=== PATIENT | female | born 1955 | race Caucasian/White ===

== ENCOUNTER → 2019-11-27 | Outpatient (CLI) | payer MEDICARE ==
[2019-11-27 09:25] LABS: ALANINE AMINOTRANSFERASE 16 U/L (0-55); ALKALINE PHOSPHATASE 40 U/L (40-136); BILIRUBIN,TOTAL 0.4 MG/DL (0.1-1.0); BUN/CREATININE RATIO 15; CALCIUM 9.4 MG/DL (8.5-10.1); CARBON DIOXIDE 29 MMOL/L (21-32); CHLORIDE 106 MMOL/L (98-107); CREATININE SERUM 0.78 MG/DL (0.60-1.30); GFR ESTIMATED > 60; GLUCOSE 99 MG/DL (70-105); POTASSIUM 4.2 MMOL/L (3.6-5.0); SODIUM 144 MMOL/L (135-145); TOTAL PROTEIN 6.4 GM/DL (6.4-8.2)
[2019-11-27 09:26] LABS: ALBUMIN 4.3 GM/DL (3.2-4.5)
[2019-11-27 15:30] LABS: CHOLESTEROL 246 MG/DL (< 200); HDL CHOLESTEROL 94 MG/DL (40-60); TRIGLYCERIDES 54 MG/DL (<150); VLDL CHOLESTEROL 11 MG/DL (5-40)
== END ==
LOC: LAB FS 08:00
PROVIDERS: ATTEND Family Medicine
DX: Z00.00 Encounter for general adult medical examination without abnormal findings (principal)
CPT/HCPCS: 36415; 80053; 80061

== ENCOUNTER → 2020-11-27 | Outpatient (CLI) | payer MEDICARE ==
[2020-11-27 12:31] LABS: BUN/CREATININE RATIO 16; CARBON DIOXIDE 30 MMOL/L (21-32); CHLORIDE 105 MMOL/L (98-107); CREATININE SERUM 0.74 MG/DL (0.60-1.30); GFR ESTIMATED > 60; POTASSIUM 3.9 MMOL/L (3.6-5.0); SODIUM 142 MMOL/L (135-145)
[2020-11-27 12:32] LABS: ALANINE AMINOTRANSFERASE 16 U/L (0-55); ALBUMIN 4.3 GM/DL (3.2-4.5); ALKALINE PHOSPHATASE 46 U/L (40-136); BILIRUBIN,TOTAL 0.5 MG/DL (0.1-1.0); CALCIUM 9.8 MG/DL (8.5-10.1); GLUCOSE 90 MG/DL (70-105); TOTAL PROTEIN 6.5 GM/DL (6.4-8.2)
[2020-11-27 15:12] LABS: CHOLESTEROL 238 MG/DL (< 200); HDL CHOLESTEROL 85 MG/DL (40-60); TRIGLYCERIDES 75 MG/DL (<150); VLDL CHOLESTEROL 15 MG/DL (5-40)
== END ==
LOC: LAB FS 08:25
PROVIDERS: ATTEND Family Medicine
DX: I10 Essential (primary) hypertension (principal); L65.9 Nonscarring hair loss, unspecified
CPT/HCPCS: 36415; 80053; 80061; 84443

== ENCOUNTER 2022-05-17 09:54 | Inpatient (IN) | payer MEDICARE ==
[~2022-05-17] VITALS: Ht 162 cm; Wt 44.0 kg
[2022-05-17] MEDS ORDERED: FAMOTIDINE 20 MG (PEPCID) TABLET PO STA (10:13)
--- NOTE | 2022-05-17 10:13 | ED Cardiac General ---
History of Present Illness General Stated Complaint: CHEST PAIN Source: patient Exam Limitations: no limitations History of Present Illness Date Seen by Provider: May 17, 2022 Time Seen by Provider: 10:00 Initial Comments 66-year-old female with past medical history of Parkinson's and anxiety coming in due to chest pain. Started a couple hours ago, constant, center of her chest, pressure-like discomfort. Pain has been nonradiating, no associated shortness of breath, cough, fever, abdominal pain, nausea, vomiting, diarrhea, weakness, numbness, or any other concerns. She tried taking half of her propranolol since that is what she takes when she gets anxious. The only other medicine she is on is a trial drug for her Parkinson's. She does not take any blood thinners. Denies any coronary history, no prior blood clots, no hemoptysis, leg swelling or pain, recent surgery, recent long travel, does not take any hormones. Allergies and Home Medications Allergies Coded Allergies: penicillin V (Verified Allergy, Unknown, 05/17/22) Patient Home Medication List Home Medication List Reviewed: Yes Review of Systems Review of Systems Constitutional: No fever EENTM: No Blurred Vision Respiratory: Denies Cough, Denies Shortness of Air, Denies SOA at Rest Cardiovascular: Chest Pain Gastrointestinal: Denies Abdominal Pain Genitourinary: No Symptoms Reported Musculoskeletal: no symptoms reported Skin: no symptoms reported Psychiatric/Neurological: Anxiety Endocrine: No Symptoms Reported Hematologic/Lymphatic: No Symptoms Reported All Other Systems Reviewed Negative Unless Noted: Yes Past Fffkkgu-Zdnrui-Jnsfcy Hx Patient Social History Tobacco Use?: No Past Medical History Surgeries: No Physical Exam Vital Signs Vital Signs - First Documented 05/17/22 10:27 Pulse 57 B/P (MAP) 146/86 (106) Pulse Ox 98 Capillary Refill : Height, Weight, BMI Height: '" Weight: lbs. oz. kg; BMI Method: General Appearance: No Apparent Distress, WD/WN HEENT: PERRL/EOMI, Normal ENT Inspection, Pharynx Normal Neck: Full Range of Motion, Normal Inspection, Non Tender, Supple Respiratory: Chest Non Tender, Lungs Clear, Normal Breath Sounds, No Accessory Muscle Use, No Respiratory Distress Cardiovascular: Regular Rate, Rhythm, No Edema, Normal Peripheral Pulses Gastrointestinal: Normal Bowel Sounds, Non Tender, Soft Extremity: Normal Capillary Refill, Normal Inspection, Normal Range of Motion, Non Tender, No Calf Tenderness, No Pedal Edema Neurologic/Psychiatric: Alert, No Motor/Sensory Deficits, Normal Mood/Affect Skin: Normal Color, Warm/Dry Lymphatic: No Adenopathy Progress/Results/Core Measures Results/Orders Lab Results Laboratory Tests Test 05/17/22 10:05 05/17/22 11:00 Range/Units White Blood Count 7.2 4.3-11.0 10^3/uL Red Blood Count 4.43 3.80-5.11 10^6/uL Hemoglobin 13.7 11.5-16.0 g/dL Hematocrit 41 35-52 % Mean Corpuscular Volume 92 80-99 fL Mean Corpuscular Hemoglobin 31 25-34 pg Mean Corpuscular Hemoglobin Concent 34 32-36 g/dL Red Cell Distribution Width 12.6 10.0-14.5 % Platelet Count 272 130-400 10^3/uL Mean Platelet Volume 9.5 9.0-12.2 fL Immature Granulocyte % (Auto) 0 % Neutrophils (%) (Auto) 68 42-75 % Lymphocytes (%) (Auto) 21 12-44 % Monocytes (%) (Auto) 9 0-12 % Eosinophils (%) (Auto) 1 0-10 % Basophils (%) (Auto) 1 0-10 % Neutrophils # (Auto) 4.9 1.8-7.8 10^3/uL Lymphocytes # (Auto) 1.5 1.0-4.0 10^3/uL Monocytes # (Auto) 0.6 0.0-1.0 10^3/uL Eosinophils # (Auto) 0.1 0.0-0.3 10^3/uL Basophils # (Auto) 0.1 0.0-0.1 10^3/uL Immature Granulocyte # (Auto) 0.0 0.0-0.1 10^3/uL Prothrombin Time 13.1 12.2-14.7 SEC INR Comment 1.0 0.8-1.4 Activated Partial Thromboplast Time 25 24-35 SEC Sodium Level 142 135-145 MMOL/L Potassium Level 4.5 3.6-5.0 MMOL/L Chloride Level 104 98-107 MMOL/L Carbon Dioxide Level 27 21-32 MMOL/L Anion Gap 11 5-14 MMOL/L Blood Urea Nitrogen 12 7-18 MG/DL Creatinine 0.79 0.60-1.30 MG/DL Estimat Glomerular Filtration Rate 81 BUN/Creatinine Ratio 15 Glucose Level 125 H 70-105 MG/DL Calcium Level 9.5 8.5-10.1 MG/DL Corrected Calcium 9.1 8.5-10.1 MG/DL Magnesium Level 2.0 1.6-2.4 MG/DL Total Bilirubin 0.5 0.1-1.0 MG/DL Aspartate Amino Transf (AST/SGOT) 35 H 5-34 U/L Alanine Aminotransferase (ALT/SGPT) 19 0-55 U/L Alkaline Phosphatase 54 40-136 U/L Troponin I < 0.30 0.70 *H <0.30 NG/ML Pro-B-Type Natriuretic Peptide 166.2 H <125.0 PG/ML Total Protein 6.7 6.4-8.2 GM/DL Albumin 4.5 3.2-4.5 GM/DL Lipase 19 8-78 U/L My Orders Orders - ERIBERTO CANTOR MD Cbc With Automated Diff (05/17/22 10:13) Magnesium (05/17/22 10:13) Chest 1 View Ap/Pa Only (05/17/22 10:13) Ekg Tracing (05/17/22 10:13) Comprehensive Metabolic Panel (05/17/22 10:13) Protime With Inr (05/17/22 10:13) Partial Thromboplastin Time (05/17/22 10:13) O2 (05/17/22 10:13) Monitor-Rhythm Ecg Trace Only (05/17/22 10:13) Aspirin Chewable Tablet (Baby Aspirin Ch (05/17/22 10:15) Ed Iv/Invasive Line Start (05/17/22 10:13) Lipase (05/17/22 10:13) Troponin I Fs (05/17/22 10:13) Probnp Fs (05/17/22 10:13) Lidocaine 2% Viscous 15 Ml (Xylocaine Vi (05/17/22 10:15) Famotidine Tablet (Pepcid Tablet) (05/17/22 10:13) Antacid Suspension (Mylanta Suspension (05/17/22 10:15) Troponin I Fs (05/17/22 11:02) Enoxaparin Injection (Lovenox Injection) (05/17/22 11:45) Nitroglycerin Ointment (Nitrobid Ointme (05/17/22 11:45) Nitroglycerin 0.4 Mg Btl 25's (Nitrostat (05/17/22 11:45) Ekg Tracing (05/17/22 11:39) Ed Admission (Communication) (05/17/22 11:40) Medications Given in ED Current Medications Medications Dose Ordered Sig/Roddy Route Start Time Stop Time Status Last Admin Dose Admin Al Hydrox/Mg Hydrox/Simethicone 30 ml ONCE ONCE PO 05/17/22 10:15 05/17/22 10:16 DC 05/17/22 10:20 30 ML Aspirin 324 mg ONCE ONCE PO 05/17/22 10:15 05/17/22 10:16 DC 05/17/22 10:18 324 MG Enoxaparin Sodium 50 mg ONCE ONCE SC 05/17/22 11:45 05/17/22 11:46 DC 05/17/22 11:45 50 MG Lidocaine HCl 15 ml ONCE ONCE PO 05/17/22 10:15 05/17/22 10:16 DC 05/17/22 10:20 15 ML Nitroglycerin 1 TAB Q 5 MIN X 3 NEEDED PRN SL 05/17/22 11:45 05/17/22 11:47 0.4 MG Vital Signs/I&O 05/17/22 10:27 Pulse 57 B/P (MAP) 146/86 (106) Pulse Ox 98 Progress Progress Note : Progress Note 66-year-old female with above history coming in due to chest pain. ABCs were intact and vitals are stable on presentation although she was mildly bradycardic ranging from the high 50s to 60s. She was hypertensive. She was given aspirin on arrival. EKG appears nonischemic. Initial troponin undetectable with repeat 0.7. She was then given 1 unit/kg of Lovenox as well as nitro paste started. I contacted Dr. Joyner for consultation and the patient will be admitted to the intensive care unit under Dr. Solis as an inpatient. Initial ECG Impression Date: May 17, 2022 Initial ECG Impression Time: 10:13 Initial ECG Rate: 54 Initial ECG Rhythm: S.Fito Comment Narrow QRS, normal axis, no significant ST elevation or T wave abnormalities, subtle ST depression in inferior and lateral leads, repeat EKG is stable and unchanged Diagnostic Imaging Diagonstic Imaging: Xray Plain Films/CT/US/NM/MRI: chest Comments [facility] [place], [place] NAME: COCO MOY [facility] REC#: [id number] PT STATUS: REG ER : 1955 PHYSICIAN: ERIBERTO CANTOR MD ADMIT DATE: 05/17/22/ER FS Draft Date of Exam:05/17/22 CHEST 1 VIEW AP/PA ONLY CLINICAL INDICATIONS: Patient with chest pain. EXAM: Portable chest x-ray upright view. COMPARISON: None. FINDINGS: Lungs/pleura: Lungs are clear. There is no pneumothorax. There is no pleural effusion. Mediastinum: Unremarkable. Pulmonary vasculature: Unremarkable. Heart: Unremarkable. Bones/extrathoracic soft tissue: Unremarkable. IMPRESSION: There is no radiographic evidence of acute cardiopulmonary process. Dictated on workstation # [id number] Dict: 05/17/22 1029 Trans: 05/17/22 1031 CV [id number] Interpreted by: ARCHIE KARIMI MD Electronically signed by: Departure Impression Primary Impression: NSTEMI (non-ST elevated myocardial infarction) Disposition: 30 STILL A PATIENT Condition: Stable Admissions Decision to Admit Reason: Admit from ER (General) Decision to Admit/Date: May 17, 2022 Time/Decision to Admit Time: 11:25 Transfer Transfer Facility: [facility] Method of Transfer: EMS Departure-Patient Inst. Referrals: DOLORES CALDWELL MD (PCP/Family) Primary Care Physician ERIBERTO CANTOR MD May 17, 2022 10:13
[2022-05-17] MEDS ORDERED: ANTACID SUSP 30 ML UDC (MYLANTA) PO ONE (10:15)
[2022-05-17] MEDS ORDERED: ASPIRIN 81 MG CHEW (CHILDREN'S ASA) PO ONE (10:15)
[2022-05-17] MEDS ORDERED: LIDOCAINE 2% VISCOUS 15 ML UDC PO ONE (10:15)
[2022-05-17 10:17] LABS: BASOPHILS # (AUTO) 0.1 10^3/uL (0.0-0.1); BASOPHILS % (AUTO) 1 % (0-10); EOSINOPHILS # (AUTO) 0.1 10^3/uL (0.0-0.3); EOSINOPHILS % (AUTO) 1 % (0-10); HEMATOCRIT 41 % (35-52); HEMOGLOBIN 13.7 g/dL (11.5-16.0); LYMPHOCYTES # (AUTO) 1.5 10^3/uL (1.0-4.0); LYMPHOCYTES % (AUTO) 21 % (12-44); MEAN CORPUSCULAR HEMOGLOBIN 31 pg (25-34); MEAN CORPUSCULAR HGB CONC 34 g/dL (32-36); MEAN CORPUSCULAR VOLUME 92 fL (80-99); MEAN PLATELET VOLUME 9.5 fL (9.0-12.2); MONOCYTES # (AUTO) 0.6 10^3/uL (0.0-1.0); MONOCYTES % (AUTO) 9 % (0-12); NEUTROPHILS # (AUTO) 4.9 10^3/uL (1.8-7.8); NEUTROPHILS % (AUTO) 68 % (42-75); PLATELET COUNT 272 10^3/uL (130-400); WHITE BLOOD COUNT 7.2 10^3/uL (4.3-11.0)
[2022-05-17 10:23] LABS: PROTHROMBIN TIME PATIENT 13.1 SEC (12.2-14.7)
[2022-05-17 10:29] LABS: ALBUMIN 4.5 GM/DL (3.2-4.5); BILIRUBIN,TOTAL 0.5 MG/DL (0.1-1.0); CALCIUM 9.5 MG/DL (8.5-10.1); CREATININE SERUM 0.79 MG/DL (0.60-1.30); POTASSIUM 4.5 MMOL/L (3.6-5.0); TOTAL PROTEIN 6.7 GM/DL (6.4-8.2)
--- NOTE | 2022-05-17 10:31 | Diagnostic Imaging Report ---
CLINICAL INDICATIONS: Patient with chest pain. EXAM: Portable chest x-ray upright view. COMPARISON: None. FINDINGS: Lungs/pleura: Lungs are clear. There is no pneumothorax. There is no pleural effusion. Mediastinum: Unremarkable. Pulmonary vasculature: Unremarkable. Heart: Unremarkable. Bones/extrathoracic soft tissue: Unremarkable. IMPRESSION: There is no radiographic evidence of acute cardiopulmonary process. Dictated by: Dictated on workstation # [id number]
[2022-05-17] MEDS ORDERED: NITROGLYCERIN 0.4 MG SL TABS BTL 25'S SL PRN ×2 (11:45→14:45)
[2022-05-17] MEDS ORDERED: NITROGLYCERIN 2% OINT 1 GM UNIT DOSE PACKET TOP ONE (11:45)
[2022-05-17] MEDS ORDERED: ENOXAPARIN 60 MG/0.6 ML (LOVENOX) SYR SC ONE (11:45)
[2022-05-17] MEDS ORDERED: fentaNYL INJ 100 MCG/2 ML AMP ONE (14:22)
[2022-05-17] MEDS ORDERED: VERAPAMIL 5 MG/2 ML (CALAN) VIAL IV ONE (14:22)
[2022-05-17] MEDS ORDERED: MIDAZOLAM 5 MG/5 ML (VERSED) VIAL ONE (14:23)
[2022-05-17] MEDS ORDERED: HEParin 1000 UNIT/ML (10ML VIAL) FOR BOLUS ONE (14:23)
[2022-05-17] MEDS ORDERED: NITRO DRIP 25000 MCG/D5W 0 ML IV ONE (14:23)
[2022-05-17] MEDS ORDERED: NS IV 1000 ML 1,000 ML ONE (14:23)
[2022-05-17] MEDS ORDERED: HEParin (CATH LAB) 1,000 ML IV ONE (14:23)
[2022-05-17] MEDS ORDERED: LIDOCAINE 1% INJ 20 ML VIAL ONE (14:23)
--- NOTE | 2022-05-17 14:32 | History & Physical-Hospitalist ---
History of Present Illness HPI/Chief Complaint Pt is a 66yoCF witha PMH of Parkinson's Disease and Anxiety who presented to the ER due to ches tpain. 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 She thought it was due to anxiety which is not atypical for her to get while she plays piano. She waiting to see if it would dissipate but it continued so she decided to seek evaluation in the ER. EKG showed sinus bradycardia with no ischemic changes per the ER report. She had a negative initial troponin so they attempted to rule her out in the ER. Repeat troponin increased to 0.7 and she was admitted for further management. She denies any KHOURY, palpitations, nausea, vomiting, diaphoresis. Source: patient, RN notes reviewed Date Seen 05/17/22 Time Seen by a Provider: 14:25 Attending Physician Dolores Caldwell MD PCP Admitting Physician: Attending Physician: Referring Physician Date of Admission Home Medications & Allergies Home Medications Reviewed patient Home Medication Reconciliation performed by pharmacy medication reconciliations boiler testing technician and/or nursing. Patients Allergies have been reviewed. Allergies Allergies Coded Allergies penicillin V (Verified Allergy, Unknown, 05/17/22) Past Hoifoya-Swuava-Vhsxsk Hx Patient Social History Marrital Status: Tobacco Use?: No Use of E-Cig and/or Vaping dev: No Substance use?: No Alcohol Use?: Yes Alcohol Frequency: Once in a while Current Status status: No Primary Language: Indonesian Preferred Spoken Language: Indonesian Past Medical History Parkinson's Disease Family Medical History Reviewed Nursing Family Hx Heart Disease (dad [place] at 86yo) Review of Systems Constitutional: No chills, No fever EENTM: no symptoms reported Respiratory: No cough, No dyspnea on exertion, No short of breath Cardiovascular: see HPI, chest pain Gastrointestinal: no symptoms reported Genitourinary: no symptoms reported Musculoskeletal: no symptoms reported Skin: no symptoms reported Psychiatric/Neurological: Anxiety Physical Exam Physical Exam Vital Signs Vital Signs - First Documented 05/17/22 05/17/22 10:27 12:37 Temp 36.6 Pulse 57 Resp 14 B/P (MAP) 146/86 (106) Pulse Ox 98 O2 Delivery Room Air Capillary Refill : Height, Weight, BMI Height: '" Weight: lbs. oz. kg; 16.00 BMI Method: General Appearance: No Apparent Distress, WD/WN, Anxious, Thin HEENT: PERRL/EOMI, Moist Mucous Membranes; No Scleral Icterus (L), No Scleral Icterus (R) Neck: Normal Inspection, Supple Respiratory: Lungs Clear, No Accessory Muscle Use, No Respiratory Distress Cardiovascular: Regular Rate, Rhythm, No JVD, No Murmur Gastrointestinal: Normal Bowel Sounds, Non Tender, Soft Extremity: Normal Capillary Refill, No Calf Tenderness, No Pedal Edema Neurologic/Psychiatric: Alert, Oriented x3, Normal Mood/Affect Skin: Normal Color, Warm/Dry Results Results/Procedures Labs Laboratory Tests 05/17/22 10:05 Patient resulted labs reviewed. Imaging: Reviewed Imaging Report Imaging [facility] [place] [place] NAME: COCO MOY [facility] REC#: [id number] PT STATUS: REG ER : 1955 PHYSICIAN: ERIBERTO CANTOR MD ADMIT DATE: 05/17/22/ER FS Draft Date of Exam:05/17/22 CHEST 1 VIEW AP/PA ONLY CLINICAL INDICATIONS: Patient with chest pain. EXAM: Portable chest x-ray upright view. COMPARISON: None. FINDINGS: Lungs/pleura: Lungs are clear. There is no pneumothorax. There is no pleural effusion. Mediastinum: Unremarkable. Pulmonary vasculature: Unremarkable. Heart: Unremarkable. Bones/extrathoracic soft tissue: Unremarkable. IMPRESSION: There is no radiographic evidence of acute cardiopulmonary process. Dictated on workstation # [id number] Dict: 05/17/22 1029 Trans: 05/17/22 1031 [facility] [id number] Interpreted by: ARCHIE KARIMI MD Electronically signed by: Assessment/Plan Admission Diagnosis NSTEMI Admission Status: Inpatient Order (span 2 midnights) Reason for Inpatient Admission: see below Assessment and Plan NSTEMI Troponin trended up from <0.3 to 0.7 Received ASA, Lovenox, and nitro in ER Nitro resolved pain Discussed with Dr Joyner- planning for cardiac cath today Parkinson's Disease Currently in trial She states she will find out if they want her to continue on the trial meds DVT ppx: Already received Lovenox Diagnosis/Problems Diagnosis/Problems (1) Parkinson disease (2) NSTEMI (non-ST elevated myocardial infarction) Status: Acute Copy Copies To 1: DOLORES CALDWELL MD, KATELYN M MD May 17, 2022 14:32
[2022-05-17] MEDS ORDERED: PATIENT MAY USE OWN MEDS, ALL PO SCH ×2 (14:45→15:30)
[2022-05-17] MEDS ORDERED: ONDANSETRON 4 MG/2 ML (SDV) Z0FRAN IVP PRN (14:45)
[2022-05-17] MEDS ORDERED: morphine INJ 4 MG/ML 1 ML (VIAL/SYRINGE) IV PRN (14:45)
--- NOTE | 2022-05-17 14:50 | Consultation-Cardiology ---
HPI-Cardiology Cardiology Consultation Date of Consultation 05/17/22 Date of Admission Time Seen by Provider: 14:47 Indication: Chest pain HPI 66-year-old lady with history of hypertension. Parkinson disease. Was in her usual state of health until this afternoon when she started to have chest pain described as dull in nature in the retrosternal area. Associated with shortness of breath. Patient came into the emergency room, given sublingual nitroglycerin with appropriate relief. First troponin set was normal second set showed elevation. EKG did not show any acute changes. Home Medications & Allergies Allergies: Coded Allergies: penicillin V (Verified Allergy, Unknown, 05/17/22) Home Medication List Reviewed: Yes BFA-Mhcidh-Bekmrs Hx Patient Social History Marital Status: Alcohol Use?: Yes Past Medical History Discussed below Family Medical History Significant Family History: Heart Disease (dad [place] at 86yo) Family Medical Hx Noncontributory Review of Systems-General Review of Systems Constitutional: see HPI; No chills, No fever; weakness EENTM: see HPI, no symptoms reported Respiratory: see HPI; No cough, No dyspnea on exertion, No hemoptysis, No orthopnea, No phlegm; short of breath; No stridor, No wheezing, No other Cardiovascular: see HPI, chest pain; No edema, No Hx of Intervention, No palpitations, No syncope, No vascular heart diseas, No other Gastrointestinal: no symptoms reported, see HPI Genitourinary: no symptoms reported, see HPI Musculoskeletal: no symptoms reported, see HPI Skin: no symptoms reported, see HPI Psychiatric/Neurological: Anxiety All Other Systems Reviewed Negative Unless Noted: Yes Reviewed Test Results Reviewed Test Results Lab Laboratory Tests Test 05/17/22 10:05 05/17/22 11:00 Range/Units White Blood Count 7.2 4.3-11.0 10^3/uL Red Blood Count 4.43 3.80-5.11 10^6/uL Hemoglobin 13.7 11.5-16.0 g/dL Hematocrit 41 35-52 % Mean Corpuscular Volume 92 80-99 fL Mean Corpuscular Hemoglobin 31 25-34 pg Mean Corpuscular Hemoglobin Concent 34 32-36 g/dL Red Cell Distribution Width 12.6 10.0-14.5 % Platelet Count 272 130-400 10^3/uL Mean Platelet Volume 9.5 9.0-12.2 fL Immature Granulocyte % (Auto) 0 % Neutrophils (%) (Auto) 68 42-75 % Lymphocytes (%) (Auto) 21 12-44 % Monocytes (%) (Auto) 9 0-12 % Eosinophils (%) (Auto) 1 0-10 % Basophils (%) (Auto) 1 0-10 % Neutrophils # (Auto) 4.9 1.8-7.8 10^3/uL Lymphocytes # (Auto) 1.5 1.0-4.0 10^3/uL Monocytes # (Auto) 0.6 0.0-1.0 10^3/uL Eosinophils # (Auto) 0.1 0.0-0.3 10^3/uL Basophils # (Auto) 0.1 0.0-0.1 10^3/uL Immature Granulocyte # (Auto) 0.0 0.0-0.1 10^3/uL Prothrombin Time 13.1 12.2-14.7 SEC INR Comment 1.0 0.8-1.4 Activated Partial Thromboplast Time 25 24-35 SEC Sodium Level 142 135-145 MMOL/L Potassium Level 4.5 3.6-5.0 MMOL/L Chloride Level 104 98-107 MMOL/L Carbon Dioxide Level 27 21-32 MMOL/L Anion Gap 11 5-14 MMOL/L Blood Urea Nitrogen 12 7-18 MG/DL Creatinine 0.79 0.60-1.30 MG/DL Estimat Glomerular Filtration Rate 81 BUN/Creatinine Ratio 15 Glucose Level 125 H 70-105 MG/DL Calcium Level 9.5 8.5-10.1 MG/DL Corrected Calcium 9.1 8.5-10.1 MG/DL Magnesium Level 2.0 1.6-2.4 MG/DL Total Bilirubin 0.5 0.1-1.0 MG/DL Aspartate Amino Transf (AST/SGOT) 35 H 5-34 U/L Alanine Aminotransferase (ALT/SGPT) 19 0-55 U/L Alkaline Phosphatase 54 40-136 U/L Troponin I < 0.30 0.70 *H <0.30 NG/ML Pro-B-Type Natriuretic Peptide 166.2 H <125.0 PG/ML Total Protein 6.7 6.4-8.2 GM/DL Albumin 4.5 3.2-4.5 GM/DL Lipase 19 8-78 U/L Physical Exam Physical Exam Vital Signs Vital Signs - First Documented 05/17/22 05/17/22 10:27 12:37 Temp 36.6 Pulse 57 Resp 14 B/P (MAP) 146/86 (106) Pulse Ox 98 O2 Delivery Room Air Capillary Refill : Height, Weight, BMI Height: '" Weight: lbs. oz. kg; 16.00 BMI Method: General Appearance: No Apparent Distress, WD/WN, Anxious, Thin HEENT: PERRL/EOMI, Moist Mucous Membranes; No Scleral Icterus (L), No Scleral Icterus (R) Neck: Normal Inspection, Supple Respiratory: Lungs Clear, No Accessory Muscle Use, No Respiratory Distress Cardiovascular: Regular Rate, Rhythm, No JVD, No Murmur Gastrointestinal: Normal Bowel Sounds, Non Tender, Soft Extremity: Normal Capillary Refill, No Calf Tenderness, No Pedal Edema Neurologic/Psychiatric: Alert, Oriented x3, Normal Mood/Affect Skin: Normal Color, Warm/Dry Lymphatic: No Adenopathy A/P-Cardiology Admission Diagnosis Chest pain Non-ST elevation myocardial infarction Coronary artery disease Parkinson's disease Assessment/Plan Chest pain, unstable angina EKG showed sinus rhythm with nonspecific T wave abnormality, no acute ischemic changes, troponin level is trending up. Patient initially reported full resolution of her chest pain, currently reporting mild chest discomfort I am planning to proceed with cardiac catheterization possible PTCA today. Hypertension, blood pressure is better controlled at this time. Continue to monitor Parkinson disease, patient has been enrolled in a study with investigational medication. GENOVEVA LUTZ MD May 17, 2022 14:50
--- NOTE | 2022-05-17 14:51 | Conscious Sedation/ASA ---
Conscious Sedation Pre-Proced Time 14:51 ASA Score 3 For ASA 3 and 4: Consider anesthesia and medical clearance. Also, for patients with a history of failed moderate sedation consider anesthesia. Airway Lungs Heart ASA score ASA 1: a normal healthy patient ASA 2: a patient with a mild systemic disease (mid diabetes, controlled hypertension, obesity x ASA 3: a patient with a severe systemic disease that limits activity (angina, COPD, prior Myocardial infarction) ASA 4: a patient with an incapacitating disease that is a constant threat to life (CHF, renal failure) ASA 5: a moribund patient not expected to survive 24 hrs. (ruptured aneurysm) ASA 6: a declared brain- patient whose organs are being harvested. For emergent operations, add the letter E after the classification Mallampati Classification Grade 3 Sedation Plan Analgesia, Amnesia, Plan communicated to team members, Discussed options with patient/fam, Discussed risks with patient/fam The patient is an appropriate candidate to undergo the planned procedure, sedation, and anesthesia. The patient immediately re-assessed prior to indication. GENOVEVA LUTZ MD May 17, 2022 14:51
--- NOTE | 2022-05-17 14:58 | Tele-ICU Consult ---
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 oz. kg; 16.00 BMI Method: Labs Laboratory Tests 05/17/22 10:05 Results Results/Procedures Labs Laboratory Tests 05/17/22 10:05 Patient resulted labs reviewed. Imaging: Reviewed Imaging Report Results Labs Labs Laboratory Tests 05/17/22 10:05: White Blood Count 7.2, Red Blood Count 4.43, Hemoglobin 13.7, Hematocrit 41, Mean Corpuscular Volume 92, Mean Corpuscular Hemoglobin 31, Mean Corpuscular Hemoglobin Concent 34, Red Cell Distribution Width 12.6, Platelet Count 272, Mean Platelet Volume 9.5, Immature Granulocyte % (Auto) 0, Neutrophils (%) (Auto) 68, Lymphocytes (%) (Auto) 21, Monocytes (%) (Auto) 9, Eosinophils (%) (Auto) 1, Basophils (%) (Auto) 1, Neutrophils # (Auto) 4.9, Lymphocytes # (Auto) 1.5, Monocytes # (Auto) 0.6, Eosinophils # (Auto) 0.1, Basophils # (Auto) 0.1, Immature Granulocyte # (Auto) 0.0, Prothrombin Time 13.1, INR Comment 1.0, Activated Partial Thromboplast Time 25, Sodium Level 142, Potassium Level 4.5, Chloride Level 104, Carbon Dioxide Level 27, Anion Gap 11, Blood Urea Nitrogen 12, Creatinine 0.79, Estimat Glomerular Filtration Rate 81, BUN/Creatinine Ratio 15, Glucose Level 125H, Calcium Level 9.5, Corrected Calcium 9.1, Magnesium Level 2.0, Total Bilirubin 0.5, Aspartate Amino Transf (AST/SGOT) 35H, Alanine Aminotransferase (ALT/SGPT) 19, Alkaline Phosphatase 54, Troponin I < 0.30, Pro-B-Type Natriuretic Peptide 166.2H, Total Protein 6.7, Albumin 4.5, Lipase 19 05/17/22 11:00: Troponin I 0.70*H ERIC MARTÍNEZ MD May 17, 2022 14:58
--- NOTE | 2022-05-17 15:22 | Cardiac Cath Report ---
Cardiac Cath Report Physician (s)/Telephone Lineworker (s) Physician GENOVEVA LUTZ MD Pre-Procedure Diagnosis Pre-Procedure Diagnosis: Chest pain Post-Procedure Note Procedure Start Date: May 17, 2022 Name of Procedure: Left heart catheterization Findings/Procedure Note PROCEDURE NOTE: 66-year-old lady with history of Parkinson disease, admitted with acute chest pain, had mild elevation in troponin, we decided to proceed with cardiac catheterization possible PTCA. After explaining the procedure to the patient, all pros and cons were explained, all questions were answered. The patient signed the consent and then she was placed on the cardiac catheterization laboratory. Groin was prepped SL fashion local anesthesia was used. Sheath placed in the right femoral artery. Ramirez right and left catheter were used to access the coronary system. Ramirez right catheter was prolapsed to the left ventricular cavity. Left ventriculogram was not done, pressure was measured, pullback LV to aorta was done. At the end of the procedure the sheath was removed. Closure device was deployed FINDINGS: Hemodynamics LV 96/18, end-diastolic pressure of 18 Aorta 101/59 mean of 80 ANATOMY: Left Main is free of obstructive disease Left Anterior Descending is moderate in size with 20 to 30% stenosis proximally, nonobstructive disease slightly tortuous artery with no obstructive disease Left Circumflex is moderate in size with mild disease nonobstructive disease Right Coronary Artery is small artery with no obstructive disease LV Gram was not done, pressure was measured CONCLUSION: 1. 20 to 30% stenosis in the proximal LAD, otherwise mild coronary artery disease nonobstructive disease 2. Moderately elevated left ventricular end-diastolic pressure DISCUSSION AND RECOMMENDATION: We will continue monitoring, continue on aspirin, I will evaluate 2D echocardiogram Anesthesia Type: Conscious Sedation Estimated blood loss (mL): 15 ml Contrast Amount: 27 ml Total Radiation Dose: 70 mGy Post-Procedure Diagnosis Post-operative diagnosis: Chest pain Coronary artery disease Type II myocardial infarction Parkinson disease GENOVEVA LUTZ MD May 17, 2022 15:22
[2022-05-17] MEDS: NS IV 1000 ML 1,000 ML IV SCH (15:30)
[2022-05-17] MEDS ORDERED: NS IV 1000 ML 1,000 ML IV STA (16:38)
[2022-05-17] MEDS ORDERED: DOBUTamine DRIP 250 ML IV SCH (18:45)
[2022-05-17] MEDS ORDERED: DOBUTamine DRIP 250 ML IV ONE (18:54)
[2022-05-17 18:59] VITALS: BP 73/36
[2022-05-18 04:28] LABS: HEMATOCRIT 37 % (35-52); HEMOGLOBIN 12.5 g/dL (11.5-16.0); MEAN CORPUSCULAR HEMOGLOBIN 31 pg (25-34); MEAN CORPUSCULAR HGB CONC 34 g/dL (32-36); MEAN CORPUSCULAR VOLUME 93 fL (80-99); MEAN PLATELET VOLUME 10.1 fL (9.0-12.2); PLATELET COUNT 179 10^3/uL (130-400); WHITE BLOOD COUNT 6.8 10^3/uL (4.3-11.0)
[2022-05-18 04:42] LABS: POTASSIUM 4.4 MMOL/L (3.6-5.0)
[2022-05-18 04:43] LABS: CALCIUM 8.2 MG/DL (8.5-10.1)
[2022-05-18 04:48] LABS: CREATININE SERUM 0.68 MG/DL (0.60-1.30)
[2022-05-18] MEDS ORDERED: ASPIRIN E.C. 81 MG (ECOTRIN) TAB PO SCH (09:00)
[2022-05-18] MEDS ORDERED: LOSARTAN 25 MG (COZAAR) TAB PO SCH (09:00)
--- NOTE | 2022-05-18 10:46 | Cardiology Progress Note ---
Subjective Date Seen by Provider: May 18, 2022 Time Seen by Provider: 08:00 Subjective/Events-last exam Patient was seen at bedside, feeling better. No new complaint Denied any chest pain or shortness of breath. No palpitation Review of Systems General: No Chills, No Night Sweats, No Fatigue, No Malaise, No Appetite, No Other HEENT: No Head Aches, No Visual Changes, No Eye Pain, No Ear Pain, No Dysphasia, No Sinus Congestion, No Post Nasal Drip, No Sore Throat, No Other Pulmonary: No Dyspnea, No Cough, No Pleuritic Chest Pain, No Other Cardiovascular: No: Chest Pain, Palpitations, Orthopnea, Paroxysmal Noc. Dyspnea, Edema, Lt Headedness, Other Objective-Cardiology Exam Last Set of Vital Signs Vital Signs 05/18/22 05/18/22 07:00 10:00 Temp 36.5 Pulse 68 Resp 10 B/P (MAP) 116/90 Pulse Ox 98 O2 Delivery Room Air I&O Intake and Output 05/18/22 00:00 Daily Weight Change No General: Alert, Oriented X3, Cooperative HEENT: Atraumatic, PERRLA Neck: Supple, No JVD, No Thyromegaly Lungs: Clear to Auscultation, Normal Air Movement Heart: Regular Rate, Normal S1, Normal S2, No Murmurs Abdomen: Normal Bowel Sounds, Soft, No Tenderness, No Hepatosplenomegaly, No Masses Extremities: No Clubbing, No Cyanosis, No Edema, Normal Pulses, No Tenderness/Swelling Skin: No Rashes, No Breakdown, No Significant Lesion Neuro: Normal Gait, Normal Speech, Strength at 5/5 X4 Ext, Normal Tone, Sensation Intact Psych/Mental Status: Mental Status NL, Mood NL Results Lab Laboratory Tests 05/18/22 03:50 A/P-Cardiology Admission Diagnosis Chest pain Non-ST elevation myocardial infarction Coronary artery disease Parkinson's disease Assessment/Plan Chest pain, resembling angina Probably secondary to heart failure. Currently chest pain is better. Coronary artery disease, cardiac catheterization was done on May 17, 2022 showing mild to moderate coronary artery disease nonobstructive disease. Congestive heart failure, acute left ventricular systolic dysfunction, nonis chemic cardiomyopathy. Unable to tolerate aggressive treatment with Coreg and losartan due to hypote nsion I attempted trial with dobutamine 2.5 mcg/kg/min, patient had very minimal improvement with the medication and developed chest pain. I had a long discussion with the patient and her family and her son who is an anesthesiologist in [place]. We will continue to attempt maximizing medical therapy I will arrange for her for evaluation at the heart failure clinic in . I discussed the management plan with Dr. [place] who graciously accepted to see her tomorrow at 10 AM Most probably Takotsubo cardiomyopathy. I will evaluate tickborne panel I will arrange for LifeVest for now. Hypotension, probably combination of heart failure and medication. Parkinson disease, patient has been enrolled in a study with investigational medication. GENOVEVA LUTZ MD May 18, 2022 10:46
[2022-05-18] MEDS: NS IV 1000 ML 1,000 ML IV SCH ×2 (11:00→11:01)
[2022-05-18] MEDS ORDERED: CALC300T4 PO (12:27)
[2022-05-18] MEDS ORDERED: IBUP-2473 PO (12:27)
[2022-05-18] MEDS ORDERED: PROP10TA8 PO (12:27)
[2022-05-18] MEDS ORDERED: ACET-2267 PO (12:27)
[2022-05-18] MEDS ORDERED: CARV3.122 PO (15:40)
[2022-05-18] MEDS ORDERED: LOSA25TA41 PO (15:40)
[2022-05-18] MEDS ORDERED: ASPI-1238 PO (15:40)
--- NOTE | 2022-05-18 15:52 | Discharge Summary ---
Discharge Summary Hospital Course Was the Problem List Reviewed?: Yes Problems/Dx: (1) NSTEMI (non-ST elevated myocardial infarction) Status: Acute (2) Acute HFrEF (heart failure with reduced ejection fraction) Status: Acute (3) NICM (nonischemic cardiomyopathy) Status: Acute (4) Parkinson disease Status: Chronic Hospital Course Date of Admission: May 17, 2022 at 14:18 Admission Diagnosis : NSTEMI Family Physician/Provider: Dolores Caldwell MD Date of Discharge: 05/18/22 Discharge Diagnosis: Acute HFrEF, NICM, NSTEMI Hospital Course: Palma Smith is a 66 year old female with PMH Parkinson's disease who p resented with chest pain and was admitted with NSTEMI. Cardiology was consulted and assisted with her care. She underwent a left heart catheterization which showed mild coronary artery disease with no intervention needed. She underwent an echocardiogram which showed severely reduced ejection fraction 10-15%. She required IV Dobutamine for a short time due to hypotension. She was titrated off and started on low dose Coreg. She is also being started on low dose Losartan. Dr. Joyner arranged follow up at [facility] Card[facility] tomorrow morning. There is concern for possible Takotsubo cardiomyopathy related to anxiety and stress. She was set up with a LifeVest. She was discharged home in stable condition. Labs and Pending Lab Test: Laboratory Tests 05/18/22 03:50: White Blood Count 6.8, Red Blood Count 4.00, Hemoglobin 12.5, Hematocrit 37, Mean Corpuscular Volume 93, Mean Corpuscular Hemoglobin 31, Mean Corpuscular Hemoglobin Concent 34, Red Cell Distribution Width 12.6, Platelet Count 179, Mean Platelet Volume 10.1, Sodium Level 139, Potassium Level 4.4, Chloride Level 108H, Carbon Dioxide Level 20L, Anion Gap 11, Blood Urea Nitrogen 9, Creatinine 0.68, Estimat Glomerular Filtration Rate 95, BUN/Creatinine Ratio 13, Glucose Level 106H, Calcium Level 8.2L, Triglycerides Level 58, Cholesterol Level 192, LDL Cholesterol Direct 109, VLDL Cholesterol 12, HDL Cholesterol 67H, Thyroid Stimulating Hormone (TSH) 0.65 05/18/22 15:05: Lyme Disease Screen IgG & IgM Ab [Pending], Lyme Antibody Interpretation [Pending], Ehrlichia chaffeensis IgG Antibody [Pending], Ehrlichia chaffeensis IgM Antibody [Pending], Spotted Fever Group IgG Antibody [Pending], Spotted Fever Group IgM Antibody [Pending], [place] Antibody [Pending] Home Meds Active Losartan Potassium 25 Mg Tablet 12.5 Mg PO DAILY 30 Days Aspirin EC (Aspirin) 81 Mg Tablet.dr 81 Mg PO DAILY 30 Days Carvedilol 3.125 Mg Tablet 3.125 Mg PO BID 30 Days Reported Tums (Calcium Carbonate) 300 Mg Calcium (750 Mg) Tab.chew 300 Mg PO UD PRN Ibuprofen 200 Mg Tablet 400 Mg PO Q8H PRN Tylenol Extra Strength (Acetaminophen) 500 Mg Tablet 500-1,000 Mg PO Q8H PRN Propranolol HCl 10 Mg Tablet 5-10 Mg PO BID PRN Assessment/Pt Instructions See instructions Discharge Planning: >30 minutes discharge planning Discharge Instructions Discharge Diet: Low Sodium Diet Activity as Tolerated: Yes Consultations Cardiology Discharge Physical Examination Vital Signs Vital Signs Date Time Temp Pulse Resp B/P (MAP) Pulse Ox O2 Delivery O2 Flow Rate FiO2 05/18/22 15:00 76 26 118/98 100 Room Air 05/18/22 12:00 36.3 General Appearance: No Apparent Distress, WD/WN Respiratory: Lungs Clear, No Respiratory Distress Cardiovascular: Regular Rate, Rhythm, No Murmur Gastrointestinal: Normal Bowel Sounds, Soft Extremity: Normal Inspection, No Pedal Edema Skin: Normal Color, Warm/Dry Neurologic/Psychiatric: Alert, Oriented x3, Normal Mood/Affect Allergies: Coded Allergies: penicillin V (Verified Allergy, Unknown, 05/17/22) Copy Copies To 1: DOLORES CALDWELL MD Discharge Summary Date of Admission May 17, 2022 at 14:18 Date of Discharge Discharge Date: May 18, 2022 Discharge Time: 15:51 Admission Diagnosis NSTEMI Consults/Procedures Consulations Cardiology Procedures Left heart catheterization Discharge Diagnosis (1) NSTEMI (non-ST elevated myocardial infarction) Status: Acute (2) Acute HFrEF (heart failure with reduced ejection fraction) Status: Acute (3) NICM (nonischemic cardiomyopathy) Status: Acute (4) Parkinson disease Status: Chronic ANNELISE CHAWLA MD May 18, 2022 15:51
== END 2022-05-18 16:15 | disposition home or self-care (01) | DRG 280 ==
LOC: EDUNIT# 09:54 → ER FS 09:56 → ICU 14:18
PROVIDERS: ADMIT Family Medicine; ATTEND Family Medicine
PROC: 4A023N7 Measurement of Cardiac Sampling and Pressure, Left Heart, Percutaneous Approach (ICD-10-PCS; principal; 2022-05-17)
PROC: B2111ZZ Fluoroscopy of Multiple Coronary Arteries using Low Osmolar Contrast (ICD-10-PCS; 2022-05-17)
DX: I11.0 Hypertensive heart disease with heart failure (principal); I50.21 Acute systolic (congestive) heart failure; I21.A1 Myocardial infarction type 2; I42.8 Other cardiomyopathies; G20 Parkinson's disease; F41.9 Anxiety disorder, unspecified; I95.9 Hypotension, unspecified; I25.110 Atherosclerotic heart disease of native coronary artery with unstable angina pectoris
CPT/HCPCS: 36415; 71045; 80048; 80053; 80061; 83690; 83735; 83880; 84443; 84484; 85025; 85027; 85610; 85730; 86618; 86666; 86668; 86757; 87081; 93005; 93041; 93306; 93458

== ENCOUNTER → 2022-09-15 | Outpatient (CLI) | payer MEDICARE ==
[~2022-09-15] MED LIST: ACET-2267 PO; ASPI-1238 PO; CALC300T4 PO; CARV3.122 PO; IBUP-2473 PO; LOSA25TA41 PO; PROP10TA8 PO
== END ==
LOC: CARDFS 12:50
PROVIDERS: ATTEND Internal Medicine Cardiovascular Disease
DX: I07.1 Rheumatic tricuspid insufficiency (principal); I10 Essential (primary) hypertension; I25.10 Atherosclerotic heart disease of native coronary artery without angina pectoris
CPT/HCPCS: 93306